=== PATIENT | male | born 1985 | race Caucasian/White ===

== ENCOUNTER 2024-02-12 12:58 | Outpatient (CLI) | payer OTHER, SELFPAY ==
--- NOTE | 2024-02-12 13:04 | US_ITS ---
WS: [id number] TESTICULAR ULTRASOUND HISTORY: TESTICULAR PAIN COMPARISON: None available. TECHNIQUE: Real-time and color Doppler imaging or utilized to perform a testicular ultrasound. Right testicle: 5.1 cm x 3.6 cm x 2.2 cm. Normal size and echogenicity. No mass or torsion. Normal color Doppler is present throughout. Systolic and diastolic velocities are both present. No significant hydrocele. Right epididymis: Normal epididymis with no increased vascularity. Left testicle: 5.1 cm x 3.3 cm x 2.0 cm. Normal size and echogenicity. No mass or torsion. Normal color Doppler is present throughout. Systolic and diastolic velocities are both present. No significant hydrocele. Left epididymis: Normal epididymis with no increased vascularity. US/US scrotum [id number] IMPRESSION: NORMAL TESTICULAR ULTRASOUND.
== END 2024-02-12 12:59 | disposition home or self-care (01) ==
LOC: RAD 12:58
PROVIDERS: Visit Provider Nurse Practitioner
DX: Z01.89 Encounter for other specified special examinations (principal)
CPT/HCPCS: 76870

== ENCOUNTER 2025-01-13 12:59 | Outpatient (CLI) | payer OTHER, SELFPAY ==
--- NOTE | 2025-01-13 13:06 | MR_ITS ---
WS: [id number] MRI LEFT KNEE HISTORY: LEFT KNEE PAIN COMPARISON: None available. Anterior cruciate ligament: Intact. Posterior cruciate ligament: Intact. Medial collateral ligament: Intact. Posterior lateral corner structures: Intact. Medial menisci: Intact. Normal signal, size and shape. Lateral meniscus: Intact. Normal signal, size and shape. Extensor mechanism: Distal quadriceps tendon and patellar tendons are intact. Fluid and soft tissue: No joint effusion. No Collazo's cyst. Osseous and articular structures: Patellofemoral compartment: Normal. Medial compartment: Mild narrowing of the medial compartment. There is a very small amount of intermediate signal in the anterior medial tibial metaphysis. May be from a prior contusion injury. There is no fracture. Intact cartilage. Lateral compartment: Mild narrowing of the lateral compartment. No marrow edema. Cartilage is intact. MR/MR knee LT wo con* [id number] IMPRESSION: 1. No ACL or meniscal tear. 2. Subtle increased intermediate signal in the anterior medial tibial metaphys is. This may be from a prior contusion injury. There is no fracture. 3. No osteochondral defects. 4. No joint effusion.
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
== END 2025-01-13 13:00 | disposition home or self-care (01) ==
PROVIDERS: PCP Nurse Practitioner Family; Visit Provider Nurse Practitioner Family
DX: M19.011 Primary osteoarthritis, right shoulder (principal); M25.562 Pain in left knee; R93.6 Abnormal findings on diagnostic imaging of limbs; M67.813 Other specified disorders of tendon, right shoulder; M75.41 Impingement syndrome of right shoulder; M25.711 Osteophyte, right shoulder
CPT/HCPCS: 73221; 73721